=== PATIENT | male | born 1995 | race Caucasian/White ===

== ENCOUNTER 2016-09-02 00:32 | Emergency (ER) | payer SELFPAY ==
[2016-09-02 00:46] VITALS: BP 118/65
[2016-09-02] MEDS ORDERED: Ketorolac 60 MG/2 ML SDV IM ONE (01:08)
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
== END 2016-09-02 01:48 | disposition home or self-care (01) ==
LOC: KA.ED 00:32
DX: S20.212A Contusion of left front wall of thorax, initial encounter (principal); Y04.0XXA Assault by unarmed brawl or fight, initial encounter; Y93.67 Activity, basketball
CPT/HCPCS: 71101; 96372; 99283; J1885

== ENCOUNTER 2020-02-24 20:14 | Emergency (ER) | payer SELFPAY ==
[2020-02-24] MEDS ORDERED: Acetaminophen 325 MG Tab PO PRN (20:26)
[2020-02-24] MEDS ORDERED: Ondansetron 4 MG/2 ML SDV IVPUSH ONE (21:04)
[2020-02-24 21:05] LABS: ANION GAP 13.2 mmol/L (5-15); CHLORIDE,CL 102 mmol/L (98-115); SODIUM,NA 138 mmol/L (136-145)
[2020-02-24] MEDS ORDERED: Sodium Chloride 0.9% 1,000 ML IV ONE (21:11)
[2020-02-24] MEDS ORDERED: Sodium Chloride 0.9% 1,000 ML ONE (21:12)
--- NOTE | 2020-02-24 21:28 | EDM.PDOC ---
ED HPI GENERAL MEDICAL PROBLEM - General Chief Complaint: General Stated Complaint: chills,SOB, lightheaded, lose of taste Time Seen by Provider: 02/24/20 20:20 Source of Information: Reports: Patient History Limitations: Reports: No Limitations - History of Present Illness INITIAL COMMENTS - FREE TEXT/NARRATIVE: 24-year-old male presents to the emergency room with complaints of nausea,vomiting today. He states that he has not felt well most of the week. He reports a loss of taste. He denies any fever chills. He has been complaining of some mild abdominal pain and discomfort he denies any shortness of breath or chest pain. Onset: Gradual Duration: Day(s):, Getting Worse Location: Reports: Abdomen, Generalized Quality: Reports: Ache Severity: Mild Improves with: Reports: None Worsens with: Reports: None Associated Symptoms: Reports: Fever/Chills, Nausea/Vomiting. Denies: Cough, Diaphoresis, Shortness of Breath - Related Data Allergies Allergy/AdvReac Type Severity Reaction Status Date / Time No Known Drug Allergies Allergy none Verified 02/24/20 20:16 Home Meds: Home Meds QUEtiapine [SEROquel] 300 mg PO 02/24/20 [History] Past Medical History - Past Health History Medical/Surgical History: Denies Medical/Surgical History Psychiatric History: Reports: Anxiety, Depression Social & Family History - Family History Family Medical History: Noncontributory - Caffeine Use Caffeine Use: Reports: Soda ED ROS GENERAL - Review of Systems Review Of Systems: See Below Constitutional: Reports: Chills, Weakness. Denies: Fever HEENT: Reports: No Symptoms Respiratory: Denies: Shortness of Breath, Cough Cardiovascular: Reports: Lightheadedness. Denies: Chest Pain Endocrine: Reports: No Symptoms GI/Abdominal: Reports: Abdominal Pain, Nausea, Vomiting. Denies: Constipation, Diarrhea : Reports: No Symptoms Musculoskeletal: Reports: No Symptoms Skin: Reports: No Symptoms Neurological: Reports: No Symptoms Psychiatric: Reports: No Symptoms Hematologic/Lymphatic: Reports: No Symptoms Immunologic: Reports: No Symptoms ED EXAM, GENERAL - Physical Exam Exam: See Below Exam Limited By: No Limitations General Appearance: Alert, WD/WN, No Apparent Distress Eye Exam: Bilateral Eye: EOMI Nose: Normal Inspection Throat/Mouth: Normal Voice, No Airway Compromise Head: Atraumatic, Normocephalic Neck: Normal Inspection, Supple, Non-Tender, Full Range of Motion. No: Lymphadenopathy (L), Lymphadenopathy (R) Respiratory/Chest: No Respiratory Distress, Lungs Clear, Normal Breath Sounds Cardiovascular: Normal Peripheral Pulses, No Murmur, Tachycardia GI/Abdominal: Normal Bowel Sounds, Soft, Non-Tender, No Organomegaly, No Mass Back Exam: Normal Inspection Extremities: Normal Inspection Neurological: Alert, Oriented, No Motor/Sensory Deficits Psychiatric: Depressed Mood, Flat Affect Skin Exam: Warm, Dry, Intact, Normal Color, No Rash Lymphatic: No Adenopathy Course - Vital Signs Last Recorded V/S: Last Vital Signs Temp 99.6 F 02/24/20 20:48 Pulse 103 H 02/24/20 21:39 Resp 22 H 02/24/20 21:39 BP 130/86 02/24/20 21:39 Pulse Ox 98 02/24/20 21:39 - Orders/Labs/Meds Orders: Active Orders 24 hr Category Date Time Status EKG Documentation Completion [RC] STAT Care 02/24/20 20:28 Active Chest 1V Frontal [CR] Stat Exams 02/24/20 20:27 Ordered Acetaminophen [TylenoL] Med 02/24/20 20:26 Active 650 mg PO Q4H PRN Isolation [COMM] Routine Oth 02/24/20 20:28 Ordered Medication Orders Acetaminophen (Tylenol) 650 mg PO Q4H PRN PRN Reason: Fever Greater Than 101 Last Admin: 02/24/20 20:48 Dose: 325 mg Documented by: MAIKEL Labs: Laboratory Tests 02/24/20 02/24/20 02/24/20 Range/Units 20:40 20:40 20:40 WBC 9.77 (5.00-10.00) 10^3/uL RBC 4.98 (4.50-6.00) 10^6/uL Hgb 14.8 (13.0-17.0) g/dL Hct 41.4 (40.0-52.0) % MCV 83.1 (82.0-92.0) fL MCH 29.7 (27.0-31.0) pg MCHC 35.7 (32.0-36.0) g/dL RDW 12.1 (11.5-14.5) % Plt Count 376 (150-400) 10^3/uL MPV 8.8 (7.4-10.4) fL Immature Gran % (Auto) 0.1 (0.0-5.0) % Neut % (Auto) 78.9 H (50.0-70.0) % Lymph % (Auto) 14.3 L (20.0-40.0) % [place] % (Auto) 6.6 (2.0-8.0) % Eos % (Auto) 0.0 L (1.0-3.0) % Baso % (Auto) 0.1 (0.0-1.0) % Neut # (Auto) 7.71 H (2.50-7.00) 10^3/uL Lymph # (Auto) 1.40 (1.00-4.00) 10^3/uL [place] # (Auto) 0.64 (0.10-0.80) 10^3/uL Eos # (Auto) 0.00 L (0.10-0.30) 10^3/uL Baso # (Auto) 0.01 (0.00-0.10) 10^3/uL Immature Gran # (Auto) 0.01 (0.00-0.50) 10^3/uL Sodium 138 (136-145) mmol/L Potassium 3.7 (3.3-5.3) mmol/L Chloride 102 (98-115) mmol/L Carbon Dioxide 26.5 (21.0-32.0) mmol/L Anion Gap 13.2 (5-15) mmol/L BUN 11 (6-25) mg/dL Creatinine 0.76 (0.51-1.17) mg/dL Est Cr Clr Drug Dosing 167.92 mL/min Estimated GFR (MDRD) > 60 mL/min Glucose 104 H (75 - 99) mg/dL Calcium 9.3 (8.7-10.3) mg/dL SARS CoV-2 RNA Rapid NANCI Negative (NEGATIVE) Meds: Medications Generic Name Dose Route Start Last Admin Trade Name Freq PRN Reason Stop Dose Admin Acetaminophen 650 mg 02/24/20 20:26 02/24/20 20:48 Tylenol PO 325 mg Q4H PRN Administration Fever Greater Than 101 Discontinued Medications Generic Name Dose Route Start Last Admin Trade Name Freq PRN Reason Stop Dose Admin Sodium Chloride 1,000 mls @ 1,000 mls/hr 02/24/20 21:11 02/24/20 21:19 Normal Saline IV 02/24/20 22:10 1,000 mls/hr .BOLUS ONE Administration Sodium Chloride Confirm 02/24/20 21:12 02/24/20 21:19 Normal Saline Administered 02/24/20 21:13 Not Given Dose 1,000 mls @ as directed .ROUTE .STK-MED ONE Ondansetron HCl 4 mg 02/24/20 21:04 02/24/20 21:14 Zofran IVPUSH 02/24/20 21:05 4 mg ONETIME ONE Administration Ondansetron HCl 8 mg 02/24/20 22:27 Zofran Odt PO 02/24/20 22:28 ONETIME ONE - Radiology Interpretation Free Text/Narrative:: chest x-ray PA Departure - Departure Time of Disposition: 22:30 Disposition: Home, Self-Care 01 Condition: Good Clinical Impression: Nausea & vomiting Qualifiers: Vomiting type: unspecified Vomiting Intractability: non-intractable Qualified Code(s): R11.2 - Nausea with vomiting, unspecified - Discharge Information Referrals: Babak Canchola MD [Primary Care Provider] - Forms: ED Department Discharge Sepsis Event Note (ED) - Evaluation Sepsis Screening Result: No Definite Risk - Focused Exam Vital Signs: Vital Signs Temp Temp Pulse Resp BP BP Pulse Ox 02/24/20 21:39 103 H 22 H 130/86 98 02/24/20 21:20 104 H 24 H 140/86 96 02/24/20 20:51 119 H 20 132/97 H 96 02/24/20 20:48 99.6 F 02/24/20 20:16 99.6 F 128 H 22 H 134/83 96 - My Orders Last 24 Hours: My Active Orders 02/24/20 20:26 Acetaminophen [TylenoL] 650 mg PO Q4H PRN 02/24/20 20:27 Chest 1V Frontal [CR] Stat 02/24/20 20:28 EKG Documentation Completion [RC] STAT Isolation [COMM] Routine - Assessment/Plan Last 24 Hours: My Active Orders 02/24/20 20:26 Acetaminophen [TylenoL] 650 mg PO Q4H PRN 02/24/20 20:27 Chest 1V Frontal [CR] Stat 02/24/20 20:28 EKG Documentation Completion [RC] STAT Isolation [COMM] Routine Assessment:: Nausea and vomiting Plan: 1. Patient is feeling much better his nausea has improved significantly with Zofran. He was given 1 L fluids. His COVID test was negative. I recommend that he return back to home resting drinking plenty of fluids. We will send him home with 2 additional Zofran ODT's to take for any nausea. And a prescription for Zofran No. 5 was dispensed. He should follow-up with his primary care next week if his symptoms are not improving.
[2020-02-24] MEDS ORDERED: Ondansetron 4 MG Tab.DIS PO ONE (22:27)
[2020-02-24 22:30] VITALS: BP 129/90; PULSE 93
--- NOTE | 2020-02-25 08:11 | CR ---
[id number] RAD/RAD Chest PA or AP 1V EXAM: SINGLE VIEW CHEST. INDICATION: RESPIRATORY FAILURE COMPARISON: CORRELATION IS MADE WITH SEPTEMBER 02, 2016 FINDINGS: The lungs are clear and slightly hyperaerated The cardiac silhouette is normal There is a cervical rib on the left IMPRESSION: NO PNEUMONIA. QUESTION OF AIRWAY DISEASE Jacob Veronica MD 02/25/20 0810 Thank you for allowing us to participate in the care of your patient.
== END 2020-02-24 22:45 | disposition home or self-care (01) ==
LOC: KA.ED 20:14
DX: R11.2 Nausea with vomiting, unspecified (principal); Z20.828 Contact with and (suspected) exposure to other viral communicable diseases
CPT/HCPCS: 36415; 71045; 80048; 85025; 87635; 87804; 96361; 96374; 99284; A9270; J2405; J7030; U0002

== ENCOUNTER 2020-03-13 20:51 | Emergency (ER) | payer SELFPAY ==
--- NOTE | 2020-03-13 22:19 | EDM.PDOC ---
ED HPI GENERAL MEDICAL PROBLEM - General Chief Complaint: General Stated Complaint: CONFUSION, FELT LIKE PASSING OUT Time Seen by Provider: 03/13/20 21:13 Source of Information: Reports: Patient History Limitations: Reports: No Limitations - History of Present Illness INITIAL COMMENTS - FREE TEXT/NARRATIVE: Patient presents with feeling faint and spinning sensation. This started about 30 hours ago with episodes lasting about 20 minutes each. Six episodes in all. Between them he feels normal. They start while he is sitting and don't resolve with holding head still. A little blurry vision during the episodes. Bilateral Parietal Headache Pain Score (Numeric/FACES): 7 - Related Data Allergies Allergy/AdvReac Type Severity Reaction Status Date / Time No Known Drug Allergies Allergy none Verified 03/13/20 21:16 Home Meds: Home Meds QUEtiapine [SEROquel] 300 mg PO BEDTIME 02/24/20 [History] buPROPion [buPROPion XL] 150 mg PO BID 03/13/20 [History] Past Medical History - Past Health History Medical/Surgical History: Denies Medical/Surgical History Gastrointestinal History: Reports: None Neurological History: Reports: None Psychiatric History: Reports: Anxiety, Depression - Infectious Disease History Infectious Disease History: Reports: None - Past Surgical History GI Surgical History: Reports: None Musculoskeletal Surgical History: Reports: Other (See Below) Other Musculoskeletal Surgeries/Procedures:: fx to R wrist , R great toe Social & Family History - Family History Family Medical History: Noncontributory - Tobacco Use Tobacco Use Status *Q: Never Tobacco User - Caffeine Use Caffeine Use: Reports: Soda - Recreational Drug Use Recreational Drug Use: No ED ROS GENERAL - Review of Systems Review Of Systems: See Below Constitutional: Denies: Fever HEENT: Reports: Vertigo, Vision Change. Denies: Ear Pain, Throat Pain Respiratory: Denies: Shortness of Breath, Cough Cardiovascular: Reports: Lightheadedness. Denies: Chest Pain, Syncope GI/Abdominal: Denies: Abdominal Pain, Diarrhea, Vomiting : Denies: Dysuria Musculoskeletal: Denies: Neck Pain, Shoulder Pain, Arm Pain Skin: Denies: Cyanosis, Jaundice, Mottled, Pallor, Diaphoresis Neurological: Reports: Confusion, Dizziness, Headache. Denies: Seizure, Syncope, Trouble Speaking, Difficulty Walking Psychiatric: Reports: Other (The nurse discussed with me that patient has had some thoughts of suicide from her screening.). Denies: Agitation, Anxiety ED EXAM, GENERAL - Physical Exam Exam: See Below Exam Limited By: No Limitations General Appearance: Alert, WD/WN, No Apparent Distress Eye Exam: Bilateral Eye: EOMI, Normal Inspection, PERRL Ears: Normal External Exam, Hearing Grossly Normal Nose: Normal Inspection, No Blood Throat/Mouth: Normal Inspection, Normal Lips, Normal Voice, No Airway Compromise Head: Atraumatic, Normocephalic Neck: Normal Inspection, Full Range of Motion Respiratory/Chest: No Respiratory Distress, Lungs Clear, Normal Breath Sounds Cardiovascular: Regular Rate, Rhythm, No Murmur Peripheral Pulses: 2+: Radial (L), Radial (R) GI/Abdominal: Normal Bowel Sounds, Soft, Non-Tender, No Organomegaly, No Distention Back Exam: Normal Inspection, Full Range of Motion. No: CVA Tenderness (L), CVA Tenderness (R) Extremities: Normal Inspection, Normal Range of Motion Neurological: Alert, Oriented, CN II-XII Intact, Normal Cognition, No Motor/Sensory Deficits, Other ([place] Thomson test was positive for vertigo exacerbation to the right but didn't resolve even after two minutes of holding still. To the left very mild and disappeared within a minute. ) Psychiatric: Normal Affect, Normal Mood Skin Exam: Warm, Dry, Intact, Normal Color, No Rash Course - Vital Signs Last Recorded V/S: Last Vital Signs Temp 98.1 F 03/13/20 20:58 Pulse 92 03/13/20 21:26 Resp 12 03/13/20 21:26 BP 129/87 03/13/20 21:26 Pulse Ox 95 03/13/20 21:26 - Orders/Labs/Meds Orders: Active Orders 24 hr Category Date Time Status Head wo Cont [CT] Stat Exams 03/13/20 22:12 Ordered Suicide Precautions [OM.PC] Routine Oth 03/13/20 21:15 Ordered - Re-Assessments/Exams Free Text/Narrative Re-Assessment/Exam: 03/13/20 22:31 Patient went to [facility] for suicidal treatment in 2005, 2011, 2018. He says he attempted suicide at age 4 and again in 2018. [place], hoping to freeze to . He denies any suicidal plans or serious thoughts recently. Awhile back his psychiatrist started him on Bupropion which seemed to stimulate suicidal thoughts for a short time but not anymore. He tells me he doesn't have any plans now and feels safe with himself. He doesn't think he is in a dangerous place now. After a lengthy discussion I feel comfortable that patient is not suicidal recently or currently. 03/13/20 23:01 EKG shows NSR. 03/13/20 23:[address] shows no acute findings. Departure - Departure Time of Disposition: 23:11 Disposition: Home, Self-Care 01 Condition: Good Clinical Impression: Vertigo - Discharge Information Instructions: Dizziness, [id number] Referrals: Junior Gross [employer] [Primary Care Provider] - Additional Instructions: Continue to drink 8 cups of water daily. Follow up with your PCP in 1-2 days for recheck. Follow up with your psychiatrist as discussed. Return to ER if worsening as we discussed. Sepsis Event Note (ED) - Evaluation Sepsis Screening Result: No Definite Risk - Focused Exam Vital Signs: Vital Signs Temp Pulse Resp BP Pulse Ox 03/13/20 21:26 92 12 129/87 95 03/13/20 20:58 98.1 F 95 20 128/99 H 95 - My Orders Last 24 Hours: My Active Orders 03/13/20 21:15 Suicide Precautions [OM.PC] Routine 03/13/20 22:12 Head wo Cont [CT] Stat - Assessment/Plan Last 24 Hours: My Active Orders 03/13/20 21:15 Suicide Precautions [OM.PC] Routine 03/13/20 22:12 Head wo Cont [CT] Stat
[2020-03-13 22:47] VITALS: BP 123/87; PULSE 93
--- NOTE | 2020-03-14 08:16 | CT ---
[id number] CT/CT Head WO IV EXAM: NONCONTRAST HEAD CT INDICATION: VERTIGO, BLURRY VISION COMPARISON: None. DISCUSSION: The ventricles and sulci are normal in size and configuration. A 7 mm hypodensity in the right frontal white matter is near fluid attenuation and is stable relative to April 21, 2018. This is nonspecific, but a prominent vertical Luke space is favored. The sharp and white matter are otherwise normal in attenuation. No mass effect or midline shift. No acute hemorrhage or extra-axial fluid collection. No acute territorial infarct is identified. A limited look at the orbits and paranasal sinuses is unremarkable. IMPRESSION: 1. No acute findings. 2. Chronic 7 mm hypodensity in the right frontal lobe, favor Virchow-Luke space over lacunar infarct or other pathology. Bob Jara MD 03/14/20 0814 Thank you for allowing us to participate in the care of your patient.
== END 2020-03-13 23:27 | disposition home or self-care (01) ==
LOC: KA.ED 20:51
DX: R42 Dizziness and giddiness (principal); F41.9 Anxiety disorder, unspecified; F32.9 Major depressive disorder, single episode, unspecified; Z79.899 Other long term (current) drug therapy
CPT/HCPCS: 70450; 93005; 99283; 99284-25

== ENCOUNTER 2020-05-16 18:04 | Emergency (ER) | payer SELFPAY ==
--- NOTE | 2020-05-16 18:18 | EDM.PDOC ---
ED HPI GENERAL MEDICAL PROBLEM - General Chief Complaint: Behavioral/Psych Stated Complaint: SUICIDAL THOUGHTS Time Seen by Provider: 05/16/20 18:18 Source of Information: Reports: Patient - History of Present Illness INITIAL COMMENTS - FREE TEXT/NARRATIVE: Armando, 24-year-old male, presents emergency department today after he states he had suicidal ideation.He presents per himself, having family member dropped him off for this visit. His mother is aware of the presentation and is an active participant in his life and management issues. He denies any suicidal attempt, stating that he has had thoughts since last Thursday of cutting himself and today one time a thought of taking a hammer and hitting himself. He self realized that this was not appropriate actions and declined from causing any harm or attempting at any harm. He was seen yesterday in the [facility] for palpitations and his depression was discussed, arrangements for a telepsych visit are scheduled for tomorrow 17 May 2020. He has been in a psychiatric counseling relationship with Dr. Craig for some time. He states he is supposed to be on some form of antidepressant that he was started on in February but he stated he got headaches so he stopped that. He never notified providers and is gone since then with only his Seroquel for any mood modulation. He denies alcohol or drugs at any time. They were not involved in his palpitation issue nor are they involved at any factor today with his depressive thought. He knows his thoughts are not appropriate and is able to contain/control himself questioning if he should be here or attend his appointments as scheduled tomorrow. No COVID-19 concerns. - Related Data Allergies Allergy/AdvReac Type Severity Reaction Status Date / Time No Known Drug Allergies Allergy none Verified 05/16/20 18:19 Home Meds: Home Meds QUEtiapine [SEROquel] 300 mg PO BEDTIME 02/24/20 [History] Past Medical History Cardiovascular History: Reports: Other (See Below) (Palpitations, near syncope) Gastrointestinal History: Reports: None Neurological History: Reports: None Psychiatric History: Reports: Anxiety, Depression - Infectious Disease History Infectious Disease History: Reports: None - Past Surgical History GI Surgical History: Reports: None Musculoskeletal Surgical History: Reports: Other (See Below) Other Musculoskeletal Surgeries/Procedures:: fx to R wrist , R great toe Social & Family History - Family History Family Medical History: No Pertinent Family History - Caffeine Use Caffeine Use: Reports: Soda ED ROS GENERAL - Review of Systems Review Of Systems: Comprehensive ROS is negative, except as noted in HPI. ED EXAM, GENERAL - Physical Exam Exam: See Below Free Text/Narrative:: Alert, oriented, with somewhat flat affect. HEENT is negative discharge or deformity. Thorax is clear no wheezes nor crackles noted. Cardiac is regular with correlating radial pulse. Abdomen is soft no tenderness. Examination of the forearms arms shows no areas of cut or abrasion. Abdomen chest show no injury. We discussed options as he denies and does not exhibit that he has had any ingestion which is confirmed in a phone call with his mother. [facility]oma Pineda was not the best outcome or event for him, mother also agreeing they would rather stay with current psychiatric services and pursue the telepsych visit tomorrow with Dr. Craig. He acknowledges having thoughts but is able to control them and with family supervision at this time as that is his residence, he will be considered to be returned home with the supervision of parents and his visit tomorrow. Course - Vital Signs Last Recorded V/S: Last Vital Signs Temp 97.5 F 05/16/20 18:20 Pulse 118 H 05/16/20 18:20 Resp 14 05/16/20 18:20 BP 129/77 05/16/20 18:20 Pulse Ox 95 05/16/20 18:20 Departure - Departure Time of Disposition: 18:41 Disposition: Home, Self-Care 01 Condition: Good Clinical Impression: Depressive disorder, Depression with suicidal ideation - Discharge Information *PRESCRIPTION DRUG MONITORING PROGRAM REVIEWED*: Not Applicable *COPY OF PRESCRIPTION DRUG MONITORING REPORT IN PATIENT JULIA: Not Applicable Instructions: Living With Depression, Suicidal Feelings: How to Help Yourself Referrals: Junior Gross NP [Primary Care Provider] - Isrrael Craig MD [Ordering Only Provider] - Forms: ED Department Discharge Additional Instructions: Discussion with your mother, who also feels it is safe for you to go home and attend your telepsych visit with Dr. Craig tomorrow. Continue your medications as directed. Avoid high caffeine use or other sources of caffeine coffee soda and such. You may consider having a diary writing down your thoughts and what actions or events provoked those thoughts and your ability to rationalize and not act on harmful thoughts. Continue with your appointment tomorrow as scheduled. Call or return if you feel the situation becomes overwhelming and are not able to cope with thoughts or need assistance in preventing self-harm. Follow-up as scheduled tomorrow or as needed. Sepsis Event Note (ED) - Focused Exam Vital Signs: Vital Signs Temp Pulse Resp BP Pulse Ox 05/16/20 18:20 97.5 F 118 H 14 129/77 95 - Problem List & Annotations (1) Depression with suicidal ideation SNOMED Code(s): 76877244 Code(s): F32.9 - MAJOR DEPRESSIVE DISORDER, SINGLE EPISODE, UNSPECIFIED; R45.851 - SUICIDAL IDEATIONS Status: Chronic Priority: High Current Visit: No - Problem List Review Problem List Initiated/Reviewed/Updated: Yes - Assessment/Plan Plan: Discussion with your mother, who also feels it is safe for you to go home and attend your telepsych visit with Dr. Craig tomorrow. Continue your medications as directed. Avoid high caffeine use or other sources of caffeine coffee soda and such. You may consider having a diary writing down your thoughts and what actions or events provoked those thoughts and your ability to rationalize and not act on harmful thoughts. Continue with your appointment tomorrow as scheduled. Call or return if you feel the situation becomes overwhelming and are not able to cope with thoughts or need assistance in preventing self-harm. Follow-up as scheduled tomorrow or as needed.
[2020-05-16 18:23] VITALS: BP 129/77; PULSE 118
== END 2020-05-16 18:50 | disposition home or self-care (01) ==
LOC: KA.ED 18:04
DX: F32.9 Major depressive disorder, single episode, unspecified (principal); F41.9 Anxiety disorder, unspecified; Z79.899 Other long term (current) drug therapy
CPT/HCPCS: 99284

== ENCOUNTER 2021-03-03 12:25 | Emergency (ER) | payer SELFPAY ==
[2021-03-03] MEDS ORDERED: Sodium Chloride 0.9% 10 ML Syringe FLUSH PRN (12:55)
--- NOTE | 2021-03-03 13:01 | EDM.PDOCBH ---
ED HPI GENERAL MEDICAL PROBLEM - General Chief Complaint: Behavioral/Psych Stated Complaint: SUICIDAL IDEATION Time Seen by Provider: 03/03/21 12:40 Source of Information: Reports: Patient History Limitations: Reports: No Limitations - History of Present Illness INITIAL COMMENTS - FREE TEXT/NARRATIVE: 25 YO WM PRESENTS TO ER WITH SUICIDAL IDEATION WHICH BEGAN 02/27/2021. PT REP ORTS HE HAS HISTORY OF BIPOLAR DISORDER AND HAS BEEN TAKING HIS PRESCRIBED SEROQUEL BUT STATES THIS DEPRESSION SEEMS DIFFERENT TO HIM. PT STATES HE HASN'T SEEN A PSYCHIATRIST SINCE MAY 2020 BY TELE-MEDICINE FOR PRESCRIPTION REFILL. PT WAS LAST HOSPITALIZED FOR DEPRESSION 3 YEARS AGO. PT REPORTS HE WANTED TO USE A KNIFE TO SLIT HIS WRISTS. PT HAS ATTEMPTED SUICIDE IN THE PAST BY HANGING. PT ALERT AND ORIENTED X 4, GCS-15. PT DENIES AUDITORY HALLUCINATIONS/VISUAL HALLUCINATIONS. PT DENIES HOMICIDAL IDEATION. Onset Date: 02/27/21 Location: Reports: Generalized Severity: Moderate Improves with: Reports: None Worsens with: Reports: None Associated Symptoms: Reports: No Other Symptoms - Related Data Allergies Allergy/AdvReac Type Severity Reaction Status Date / Time No Known Drug Allergies Allergy none Verified 03/03/21 13:07 Home Meds: Home Meds QUEtiapine [SEROquel] 200 mg PO BEDTIME 02/24/20 [History] Past Medical History - Past Health History Medical/Surgical History: Denies Medical/Surgical History Cardiovascular History: Reports: Other (See Below) (Palpitations, near syncope) Gastrointestinal History: Reports: None Neurological History: Reports: None Psychiatric History: Reports: Anxiety, Depression, Suicidal Ideation - Infectious Disease History Infectious Disease History: Reports: None - Past Surgical History GI Surgical History: Reports: None Musculoskeletal Surgical History: Reports: Other (See Below) Other Musculoskeletal Surgeries/Procedures:: fx to R wrist , R great toe Social & Family History - Family History Family Medical History: No Pertinent Family History - Caffeine Use Caffeine Use: Reports: Soda ED ROS GENERAL - Review of Systems Review Of Systems: See Below Constitutional: Reports: No Symptoms HEENT: Reports: No Symptoms Respiratory: Reports: No Symptoms Cardiovascular: Reports: No Symptoms Endocrine: Reports: No Symptoms GI/Abdominal: Reports: No Symptoms : Reports: No Symptoms Musculoskeletal: Reports: No Symptoms Skin: Reports: No Symptoms Neurological: Reports: No Symptoms Psychiatric: Reports: Depression, Suicidal Ideation Hematologic/Lymphatic: Reports: No Symptoms Immunologic: Reports: No Symptoms ED EXAM, BEHAVIORAL HEALTH - Physical Exam Exam: See Below Exam Limited By: No Limitations General Appearance: Alert, WD/WN, No Apparent Distress Head: Atraumatic, Normocephalic Neck: Normal Inspection, Supple, Non-Tender, Full Range of Motion Respiratory/Chest: No Respiratory Distress, Lungs Clear, Normal Breath Sounds, No Accessory Muscle Use, Chest Non-Tender Cardiovascular: Normal Peripheral Pulses, Regular Rate, Rhythm, No Edema, No Gallop, No JVD, No Murmur, No Rub GI/Abdominal: Normal Bowel Sounds, Soft, Non-Tender, No Organomegaly, No Distention, No Mass Back Exam: Normal Inspection, Full Range of Motion, NT Extremities: Normal Inspection, Normal Range of Motion, Non-Tender, Normal Capillary Refill, No Pedal Edema Neurological: Alert, Normal Mood/Affect, CN II-XII Intact, Normal Cognition, Normal Gait, No Motor/Sensory Deficits, Oriented x 3 Psychiatric: Alert, Normal Cognition, Oriented, Depressed Mood, Flat Affect, Poor Eye Contact, Withdrawn, Suicidal Plan, Suicidal Thoughts. No: Auditory Hallucinations, Visual Hallucinations, Paranoid Thoughts Skin Exam: Warm, Dry, Intact, Normal color, No rash COURSE, BEHAVIORAL HEALTH COMP - Course Vital Signs: Last Vital Signs Temp 97.6 F 03/03/21 13:00 Pulse 102 H 03/03/21 13:00 Resp 16 03/03/21 13:00 BP 122/74 03/03/21 13:00 Pulse Ox 95 03/03/21 13:00 Orders, Labs, Meds: Active Orders 24 hr Category Date Time Status Peripheral IV Care [RC] . DIRECTED Care 03/03/21 12:55 Active Suicide Precautions [RC] .Per Facility Policy Care 03/03/21 14:00 Active Sodium Chloride 0.9% [Saline Flush] Med 03/03/21 12:55 Active 10 ml FLUSH Q8HR PRN Peripheral IV Insertion Adult [OM.PC] Routine Oth 03/03/21 12:55 Ordered Medication Orders Sodium Chloride (Sodium Chloride 0.9% 10 Ml Syringe) 10 ml FLUSH Q8HR PRN PRN Reason: keep vein open Laboratory Tests 03/03/21 03/03/21 03/03/21 Range/Units 12:55 12:55 13:20 WBC 5.51 (5.00-10.00) 10^3/uL RBC 4.82 (4.50-6.00) 10^6/uL Hgb 14.3 (13.0-17.0) g/dL Hct 40.8 (40.0-52.0) % MCV 84.6 (82.0-92.0) fL MCH 29.7 (27.0-31.0) pg MCHC 35.0 (32.0-36.0) g/dL RDW 11.9 (11.5-14.5) % Plt Count 290 D (150-400) 10^3/uL MPV 8.9 (7.4-10.4) fL Immature Gran % (Auto) 0.2 (0.0-5.0) % Neut % (Auto) 65.9 (50.0-70.0) % Lymph % (Auto) 27.4 (20.0-40.0) % [place] % (Auto) 5.6 (2.0-8.0) % Eos % (Auto) 0.5 L (1.0-3.0) % Baso % (Auto) 0.4 (0.0-1.0) % Neut # (Auto) 3.63 (2.50-7.00) 10^3/uL Lymph # (Auto) 1.51 (1.00-4.00) 10^3/uL [place] # (Auto) 0.31 (0.10-0.80) 10^3/uL Eos # (Auto) 0.03 L (0.10-0.30) 10^3/uL Baso # (Auto) 0.02 (0.00-0.10) 10^3/uL Immature Gran # (Auto) 0.01 (0.00-0.50) 10^3/uL Sodium 145 (136-145) mmol/L Potassium 3.7 (3.5-5.1) mmol/L Chloride 108 H (98-107) mmol/L Carbon Dioxide 26.2 (21.0-32.0) mmol/L Anion Gap 14.5 (5-15) mmol/L BUN 11 (7-18) mg/dL Creatinine 0.80 (0.51-1.17) mg/dL Est Cr Clr Drug Dosing 153.58 mL/min Estimated GFR (MDRD) > 60 mL/min Glucose 95 (70-140) mg/dL Calcium 8.8 (8.7-10.3) mg/dL Urine Opiates Screen Negative (NEGATIVE) Ur Oxycodone Screen Negative (NEGATIVE) Urine Methadone Screen Negative (NEGATIVE) Ur Propoxyphene Screen Negative (NEGATIVE) Ur Barbiturates Screen Negative (NEGATIVE) Ur Tricyclics Screen Positive H (NEGATIVE) Ur Phencyclidine Scrn Negative (NEGATIVE) Ur Amphetamine Screen Negative (NEGATIVE) U Methamphetamines Scrn Negative (NEGATIVE) U Benzodiazepines Scrn Negative (NEGATIVE) U Cocaine Metab Screen Negative (NEGATIVE) U Marijuana (THC) Screen Negative (NEGATIVE) Ethyl Alcohol < 3 H (NOT DETECTED) mg/dL Medications Generic Name Dose Route Start Last Admin Trade Name Freq PRN Reason Stop Dose Admin Sodium Chloride 10 ml 03/03/21 12:55 Sodium Chloride 0.9% 10 Ml Syringe FLUSH Q8HR PRN keep vein open Discontinued Medications Generic Name Dose Route Start Last Admin Trade Name Freq PRN Reason Stop Dose Admin Lorazepam 1 mg 03/03/21 12:55 03/03/21 14:15 Lorazepam 2 Mg/Ml Sdv IVPUSH 03/03/21 12:56 1 mg ONETIME ONE Administration Medical Clearance: 03/03/21 15:35 MEDICALLY CLEARED @1505 CALL PLACED TO [facility]- NO BED AVAILABILITY CALL PLACED TO TOOL PLANNER AT [place]- MICHELLE WINTER WHO IS ATTEMPTING TO SEE IF [facility] HAS ANY AVAILABILITY... Discharge vs Psych Eval/Treatment:: 03/03/21 17:04 DISCUSSED WITH MICHELLE IWNTER [employer] OPERATOR FOR [facility]- ACCEPTED @1705 FOR TRANSFER Departure - Departure Time of Disposition: 17:05 Disposition: DC/Tfer to Psych Hosp/Unit 65 Condition: Fair Clinical Impression: Depression with suicidal ideation - Discharge Information Referrals: Steph Singer MD [Primary Care Provider] - Forms: ED Department Discharge, Interfacility Transfer EMTALA Additional Instructions: 1. DISCHARGE HOME 2. PLENTY OF FLUIDS 3. CONTINUE CURRENT MANAGEMENT 4. TYLENOL FOR FEVER/DISCOMFORT 5. BULB SYRINGE SUCTIONING Sepsis Event Note (ED) - Focused Exam Vital Signs: Vital Signs Temp Pulse Resp BP Pulse Ox 03/03/21 13:00 97.6 F 102 H 16 122/74 95 - My Orders Last 24 Hours: My Active Orders 03/03/21 12:55 Peripheral IV Care [RC] . DIRECTED Sodium Chloride 0.9% [Saline Flush] 10 ml FLUSH Q8HR PRN Peripheral IV Insertion Adult [OM.PC] Routine 03/03/21 14:00 Suicide Precautions [RC] .Per Facility Policy - Assessment/Plan Last 24 Hours: My Active Orders 03/03/21 12:55 Peripheral IV Care [RC] . DIRECTED Sodium Chloride 0.9% [Saline Flush] 10 ml FLUSH Q8HR PRN Peripheral IV Insertion Adult [OM.PC] Routine 03/03/21 14:00 Suicide Precautions [RC] .Per Facility Policy Assessment:: 1. SUICIDAL IDEATION WITH A PLAN Plan: TRANSFER TO [facility] SUPPORTIVE CARE MICHELLE FELIX
[2021-03-03 13:30] LABS: ANION GAP 14.5 mmol/L (5-15); CHLORIDE,CL 108 mmol/L (98-107); SODIUM,NA 145 mmol/L (136-145)
[2021-03-03 13:52] LABS: BARBITURATE SCREEN,URINE NEGATIVE (NEGATIVE); BENZODIAZEPINES SCREEN,URINE NEGATIVE (NEGATIVE); TCA SCREEN,URINE POSITIVE (NEGATIVE); THC SCREEN,URINE 50 NG/ML NEGATIVE (NEGATIVE)
[2021-03-03] MEDS: LORazepam 2 MG/ML SDV IVPUSH ONE (14:15)
[2021-03-03] MEDS ORDERED: LORazepam 2 MG/ML SDV IM ONE (14:15)
[2021-03-03 17:30] VITALS: BP 127/76; PULSE 98
[2021-03-04] MEDS: LORazepam 2 MG/ML SDV IVPUSH ONE (10:26)
== END 2021-03-03 17:30 ==
LOC: KA.ED 12:25
DX: F32.A Depression, unspecified (principal)
CPT/HCPCS: 36415; 80048; 80305; 80307; 85025; 96372; 99285; J2060; 99284